=== PATIENT | female | born 1985 | race African-American/Black ===

== ENCOUNTER 2018-01-02 13:22 | Emergency (ER) | payer OTHER ==
[~2018-01-02] VITALS: Ht 165.1 cm; Wt 86.2 kg
--- NOTE | ~2018-01-02 | EKG ---
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
[~2018-01-02 13:22] MED LIST: FLEXERIL PO; METHOTREXATE 22.5 MG PO; NORCO 5-325 TA1 EACH PO; ONDANSETRON HCL4 M2 PO; PREDNISONE 5 MG5 M1 PO; TRAMADOL 50 MG50 MG PO; TRINATE TABLET1 TAB PO; VITAMIN D1000 UNI1 PO; XANAX 0.25 MG0.25 MG PO; ZANTAC 150MG T150 MG PO
[2018-01-02 13:52] LABS: ABSOLUTE NEUTROPHILS 9.2 thou/uL (1.4-8.2); BASOPHILS 0.4 % (0.0-2.0); HEMATOCRIT 43.4 % (37.0-47.0); HEMOGLOBIN 14.8 gm/dL (12.0-15.0); LYMPHOCYTES 11.3 % (24.0-44.0); MCH 31.3 pg (26.0-34.0); MCHC 34.1 g/dL (28.0-37.0); MCV 91.7 fL (80.0-100.0); MONOCYTES 4.2 % (1.0-8.0); PLATELET COUNT 298 thou/uL (150-400); POLYS 84.1 % (36.0-66.0); RBC 4.73 mil/uL (4.20-5.00); RDW 12.8 % (10.5-14.5); WBC 10.9 thou/uL (4.0-11.0)
[2018-01-02 14:01] LABS: POTASSIUM 4.2 mmol/L (3.5-5.1)
[2018-01-02 14:07] LABS: ALBUMIN 4.5 g/dL (3.4-5.0); TOTAL PROTEIN 8.3 g/dL (6.4-8.2)
[2018-01-02 14:48] LABS: URINE BILIRUBIN NEGATIVE (Negative); URINE BLOOD NEGATIVE (Negative); URINE CLARITY CLEAR; URINE COLOR YELLOW; URINE GLUCOSE-RANDOM* NEGATIVE (Negative); URINE KETONES 3+ (Negative); URINE LEUKOCYTES NEGATIVE (Negative); URINE NITRITE NEGATIVE (Negative); URINE PROTEIN (DIPSTICK) 1+ (Negative); URINE SPECIFIC GRAVITY 1.015 (1.005-1.035); URINE UROBILINOGEN 0.2 E.U./dl (0.2-1.0)
[2018-01-02 14:55] LABS: URINE REDUCING SUBSTANCE N %
[2018-01-02 15:03] LABS: CASTS None Seen /LPF (None Seen); CRYSTALS None Seen /LPF (None Seen); MUCUS >6 Heavy strn/LPF (None Seen); SQUAMOUS >10 Many /LPF (0-3); URINE RBC 0-2 Rare /HPF (0-2); URINE WBC 0-5 Rare /HPF (0-5)
[2018-01-02] MEDS ORDERED: REGLAN 10 MG TA10 MG PO (16:58)
[2018-01-02] MEDS ORDERED: LEVSIN0.125 MG PO (16:58)
[2018-01-02 17:09] VITALS: BP 102/42
== END 2018-01-02 17:11 | disposition home or self-care (01) ==
LOC: ER 13:22
PROVIDERS: Physician Assistant
DX: R10.9 Unspecified abdominal pain (principal); R11.2 Nausea with vomiting, unspecified; R00.1 Bradycardia, unspecified; M19.90 Unspecified osteoarthritis, unspecified site

== ENCOUNTER 2021-04-08 18:37 | Emergency (ER) | payer OTHER ==
[~2021-04-08] VITALS: Ht 165.1 cm; Wt 81.7 kg
[~2021-04-08 18:37] MED LIST changes: +LEVSIN0.125 MG PO; +REGLAN 10 MG TA10 MG PO
[2021-04-08 18:43] VITALS: BP 128/94
[2021-04-08] MEDS ORDERED: BACTRIM DS TAB1 EACH PO (19:38)
== END 2021-04-08 20:08 | disposition home or self-care (01) ==
LOC: ER 18:37
DX: L03.113 Cellulitis of right upper limb (principal); M79.601 Pain in right arm; Z79.899 Other long term (current) drug therapy

== ENCOUNTER 2021-06-19 10:20 | Emergency (ER) | payer OTHER ==
[~2021-06-19] VITALS: Ht 165.1 cm; Wt 83.9 kg
[~2021-06-19 10:20] MED LIST changes: +BACTRIM DS TAB1 EACH PO
[2021-06-19 10:29] VITALS: BP 143/74
[2021-06-19 10:57] LABS: BASOPHILS 0.4 % (0.0-2.0); EOSINOPHILS 0.4 % (0.0-3.0); HEMOGLOBIN 13.9 gm/dL (12.0-15.0); LYMPHOCYTES 17.4 % (24.0-44.0); MCH 32.3 pg (26.0-34.0); MCV 95.1 fL (80.0-100.0); MONOCYTES 7.9 % (1.0-8.0); PLATELET COUNT 286 thou/uL (150-400); POLYS 73.9 % (36.0-66.0); RBC 4.31 mil/uL (4.20-5.00); RDW 13.1 % (10.5-14.5); WBC 10.8 thou/uL (4.0-11.0)
[2021-06-19 11:32] LABS: CALCIUM 8.6 mg/dL (8.5-10.1); CREATININE 0.9 mg/dL (0.6-1.0); POTASSIUM 3.9 mmol/L (3.5-5.1)
[2021-06-19 11:42] LABS: ALBUMIN 3.9 g/dL (3.4-5.0); TOTAL BILIRUBIN 0.3 mg/dL (0.2-1.0); TOTAL PROTEIN 7.9 g/dL (6.4-8.2)
[2021-06-19 12:28] LABS: URINE BILIRUBIN NEGATIVE (Negative); URINE BLOOD NEGATIVE (Negative); URINE CLARITY CLEAR; URINE COLOR YELLOW; URINE GLUCOSE-RANDOM* NEGATIVE (Negative); URINE KETONES NEGATIVE (Negative); URINE LEUKOCYTES-REFLEX NEGATIVE (Negative); URINE NITRITE-REFLEX NEGATIVE (Negative); URINE PROTEIN (DIPSTICK) NEGATIVE (Negative); URINE SPECIFIC GRAVITY <= 1.005 (1.005-1.035); URINE UROBILINOGEN 0.2 E.U./dl (0.2-1.0)
[2021-06-19] MEDS ORDERED: NORCO5 PO (13:29)
[2021-06-19] MEDS ORDERED: ZOFRAN ODT4 MG PO (13:29)
[2021-06-19] MEDS ORDERED: IBUPROFEN 800800 MG PO (13:29)
== END 2021-06-19 13:35 | disposition home or self-care (01) ==
LOC: ER 10:20
PROVIDERS: Emergency Medicine
DX: N83.8 Other noninflammatory disorders of ovary, fallopian tube and broad ligament (principal); N83.202 Unspecified ovarian cyst, left side; N83.201 Unspecified ovarian cyst, right side; L40.50 Arthropathic psoriasis, unspecified; F12.90 Cannabis use, unspecified, uncomplicated; Z79.899 Other long term (current) drug therapy; Z79.891 Long term (current) use of opiate analgesic